=== PATIENT | female | born 1970 | race Caucasian/White ===

== ENCOUNTER → 2020-12-31 | Outpatient (CLI) | payer OTHER | LOC: HEART 5 08:45 | DX: R00.2 Palpitations (principal) ==

== ENCOUNTER → 2021-05-12 | Outpatient (CLI) | payer OTHER | LOC: KOH-I 08:51 | DX: M79.671 Pain in right foot (principal); M19.071 Primary osteoarthritis, right ankle and foot | CPT/HCPCS: 73630 ==